=== PATIENT | male | born 1985 | race Caucasian/White ===

== ENCOUNTER 2018-07-03 09:50 | Day surgery (SDC) | payer MEDICARE, OTHER ==
[2018-06-26 12:34] VITALS: BMI 27.1
[2018-07-03 10:35] VITALS: O2SAT 100
[2018-07-03] MEDS ORDERED: ceFAZolin 1 gm FROZEN Premix 0 GM/0 ML ML IVPB ONE ×2 (11:06→11:10)
[2018-07-03] MEDS ORDERED: Propofol 10 mg/ml Inj (20 ML) ONE (11:39)
[2018-07-03] MEDS ORDERED: Midazolam 2 MG/2 ML VIAL ONE (11:39)
[2018-07-03] MEDS ORDERED: Lidocaine Hydrochloride 0 ML INJ ONE (12:20)
[2018-07-03] MEDS ORDERED: ceFAZolin 1 gm FROZEN Premix 1 GM/50 ML ML IVPB ONE (12:21)
--- NOTE | 2018-07-03 14:00 | PCM.SURG1 ---
Surgeon's Initial Post Op Note - Surgeon's Notes Surgeon: Dr. Huizar Pediatrics Teacher: Dr. Quiroga Type of Anesthesia: General LMA Pre-Operative Diagnosis: AVF anuerismal dilation Operative Findings: See operative dictation Post-Operative Diagnosis: Same Operation Performed: Revision of AVF Specimen/Specimens Removed: None Estimated Blood Loss: EBL {In ML}: 20 Blood Products Given: N/A Drains Used: No Drains Post-Op Condition: Good Date of Surgery/Procedure: 07/03/18 Time of Surgery/Procedure: 14:00
[2018-07-03] MEDS ORDERED: HYDROmorphone 0.5 mg/0.5 ml ISec IVP PRN (14:01)
[2018-07-03] MEDS ORDERED: DiphenhydrAMINE 50 mg/ml Inj IVP PRN (14:06)
[2018-07-03 15:18] VITALS: RESP 18
[2018-07-03 15:42] VITALS: BP 124/88; PULSE 83; TEMP 97.7
--- NOTE | 2018-07-04 00:03 | OP ---
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 PROCEDURE CARRIED OUT: Revision of arteriovenous fistula with ligation of forearm and upper arm vein. SURGEON: Bernardino Huizar Jr., MD [employer] ACCOUNT EXECUTIVE: Renan Quiroga DO ANESTHESIOLOGIST: Mr. Tim CRNA INDICATIONS FOR PROCEDURE: The patient is a young man with renal insufficiency who received a transplant. He is doing quite well. He has a fistula in his arm, which is becoming aneurysmal. He discussed with his kidney transplant group the options he has. My feeling is he had cephalic arch stenosis, but this was undocumented by studies. He requested that the fistula be ligated. He is well aware of the fact that he may need dialysis in the future and that we will have to start from square one. It was also cleared to him before we began the operation that the bumps or the dilated portion of the veins may remain and may require further evacuation or removal. DESCRIPTION OF PROCEDURE: The patient was given general anesthesia and intravenous antibiotics. A tourniquet was applied to the arm and non-inflated. The proximal and distal branches were dissected free after this had been done. We then ligated both with silk sutures. This resulted in deflation of the veins on both sides of the fistula anastomosis. After this had been carried out satisfactorily, the wound was closed with layer closures and 5-0 nylon sutures on the skin. ESTIMATED BLOOD LOSS: Blood loss in the procedure was less than 25 mL. OPERATION CARRIED OUT: Revision of arteriovenous fistula with ligation of same.. Bernardino Huizar Jr., MD cc: Lindsay Smith MD
== END 2018-07-03 16:45 | disposition home or self-care (01) ==
LOC: C.SDS 09:50
PROVIDERS: ATTEND Surgery Vascular Surgery
DX: N18.6 End stage renal disease (principal); Z94.0 Kidney transplant status
CPT/HCPCS: 37607; J0690; J1170; J2250; J2704; J3010; J7040